=== PATIENT | female | born 1985 | race Hispanic/Latino ===

== ENCOUNTER 2018-03-06 20:34 | Emergency (ER) | payer SELFPAY ==
[2018-03-06 20:46] VITALS: BP 133/91; PULSE 74; TEMP 98.1; O2SAT 99
[2018-03-06] MEDS ORDERED: Lidocaine 2% Inj (20ml) INFIL ONE (21:15)
--- NOTE | 2018-03-06 21:16 | C.PDOC ---
History Of Present Illness 32 year old female presents to the ED c/o pain to her right axilla. Patient reports this symptoms have been going for a1 weeks and was given antibiotics with no improvements. Patient reports she went to the Urgent Care center today taker care of the abscess but was told to come to the ED instead. Patient denies fever, chills, nausea, vomit, diarrhea, weakness, numbness. Time Seen by Provider: 03/06/18 20:48 Chief Complaint (Nursing): Abnormal Skin Integrity History Per: Patient History/Exam Limitations: no limitations Onset/Duration Of Symptoms: Days Current Symptoms Are (Timing): Still Present Location Of Injury: Right: Arm Quality Of Symptoms: Painful, Swollen Recent travel outside of the [place]: No Additional History Per: Patient Past Medical History Reviewed: Historical Data, Nursing Documentation, Vital Signs Vital Signs: Last Vital Signs Temp 98.1 F 03/06/18 20:40 Pulse 74 03/06/18 20:40 Resp 20 03/06/18 22:07 BP 133/91 H 03/06/18 20:40 Pulse Ox 99 03/06/18 21:52 - Medical History PMH: No Chronic Diseases Surgical History: No Surg Hx Family History: States: Unknown Family Hx - Social History Hx Alcohol Use: No Hx Substance Use: No - Immunization History Hx Tetanus Toxoid Vaccination: Yes Hx Influenza Vaccination: No Hx Pneumococcal Vaccination: No Review Of Systems Constitutional: Negative for: Fever, Chills Cardiovascular: Negative for: Chest Pain Respiratory: Negative for: Shortness of Breath Gastrointestinal: Negative for: Nausea, Vomiting Musculoskeletal: Positive for: Arm Pain Skin: Positive for: Other (abscess) Neurological: Negative for: Weakness, Numbness Physical Exam - Physical Exam Appears: Non-toxic, No Acute Distress Skin: Normal Color, Warm, Dry Head: Atraumatic, Normacephalic Eye(s): bilateral: Normal Inspection Oral Mucosa: Moist Neck: Normal ROM, Supple Chest: Symmetrical Cardiovascular: Rhythm Regular Respiratory: Normal Breath Sounds, No Rales, No Rhonchi, No Wheezing Gastrointestinal/Abdominal: Soft, No Tenderness, No Guarding, No Rebound Extremity: Normal ROM, Tenderness (right axilla), Capillary Refill (< 2 seconds) , Swelling (3x3 cm abscess to right axilla, fluctuant, erythema ) Pulses: Left Radial: Normal, Right Radial: Normal Neurological/Psych: Oriented x3, Normal Speech, Normal Motor, Normal Sensation Gait: Steady ED Course And Treatment O2 Sat by Pulse Oximetry: 99 (ON RA) Pulse Ox Interpretation: Normal - Incision & Drainage Of Abscess Anesthesia: Lidocaine 2% (10 cc) Used During Procedure: Oxygen Prep Used: Sterile Water Procedure: Incised W/Scalpel Blade#: (10), Drained Pus (15 cc), Irrigated Cavity W/Saline (100 cc), Probed To Break Up Loculations, Packed W/Gauze (25 cm sterile), Cultures Obtained And Sent To Lab Medical Decision Making Medical Decision Making: Impression: abscess Plan: * I&D * Procedure well tolerate * Antibiotics Disposition - Disposition Referrals: [facility] [Outside] Disposition: HOME/ ROUTINE Disposition Time: 04:54 Condition: GOOD Prescriptions: Sulfamethoxazole/Trimethoprim [Bactrim DS 800 mg-160 mg] 1 tab PO BID #14 tab Instructions: Skin Abscess Forms: General Discharge Instructions, [facility] (Luxembourgish) Print Language: MAURITANIAN - Clinical Impression Clinical Impression: Abscess, Cellulitis - Scribe Statement The provider has reviewed the documentation as recorded by the Scribkirsty Rubio All medical record entries made by the Scribe were at my direction and personally dictated by me. I have reviewed the chart and agree that the record accurately reflects my personal performance of the history, physical exam, medical decision making, and the department course for this patient. I have also personally directed, reviewed, and agree with the discharge instructions and disposition.
--- NOTE | 2018-03-06 21:17 | C.PDOC ---
Time Seen by Provider: 03/06/18 20:48 Chief Complaint (Nursing): Abnormal Skin Integrity Past Medical History Vital Signs: Last Vital Signs Temp 98.1 F 03/06/18 20:40 Pulse 74 03/06/18 20:40 Resp 14 03/06/18 20:40 BP 133/91 H 03/06/18 20:40 Pulse Ox 99 03/06/18 20:40 - Social History Hx Alcohol Use: No Hx Substance Use: No - Immunization History Hx Tetanus Toxoid Vaccination: Yes Hx Influenza Vaccination: No Hx Pneumococcal Vaccination: No ED Course And Treatment O2 Sat by Pulse Oximetry: 99 Disposition - Disposition
[2018-03-06] MEDS ORDERED: Tmp-Smz 800 mg-160 mg DS Tab PO STA (21:51)
[2018-03-06] MEDS ORDERED: Tmp-Smz 800 mg-160 mg DS Tab ONE (22:00)
[2018-03-06 22:08] VITALS: RESP 20
== END 2018-03-06 22:07 | disposition home or self-care (01) ==
LOC: C.ER 20:34
DX: L02.411 Cutaneous abscess of right axilla (principal); L03.111 Cellulitis of right axilla